=== PATIENT | male | born 1970 | race Hispanic/Latino ===

== ENCOUNTER 2023-12-04 15:37 | Inpatient (IN) | payer BC ==
[~2023-12-04 15:37] MED LIST: Iopamidol 370 76% 100 ML VIAL ONE; Iopamidol-370 76% 500 ML MDV (1 ML CHARGE) ONE
[2023-12-04] MEDS ORDERED: fentaNYL 50 mcg/mL 1 mL Vial ONE ×3 (16:15→21:00)
[2023-12-04] MEDS ORDERED: Aspirin Chewable 81 MG TAB ONE (16:16)
[2023-12-04 16:21] LABS: Hematocrit 48.1 % (42.0-52.0); Hemoglobin 16.8 g/dL (14.0-18.0); Manual Diff?? YES; Mean Corpuscular HGB CONC 34.9 g/dL (32.0-36.0); Mean Corpuscular Hemoglobin 32.1 pg (27.0-31.0); Mean Corpuscular Volume 91.8 fl (78.0-98.0); Mean Platelet Volume 9.9 fL (7.4-10.4); Platelet Count 251 10x3/uL (130-400); RBC Distribution Width 13.5 % (11.5-14.5); Red Blood Cell (RBC) Count 5.24 mill/uL (4.70-6.10); White Blood Cell (WBC) Count 12.5 10x3/uL (4.8-10.8)
[2023-12-04 16:23] LABS: Delete Auto Diff?? YES
[2023-12-04 16:43] LABS: CellaVision Operator ID LAB.KB; Eosinophils 1 % (0-10); Hypersegmented Neutrophil SLIGHT (None Seen); Lymphocytes 23 % (21-51); Monocytes 7 % (0-10); Neutrophil 56 % (42-75); Platelet Adequacy Comment Platelets Normal; Polychromasia SLIGHT = 2-3 cells HPF (0-2); Reactive Lymphocytes 10 % (0-10); Smudge Cells 18.2 %; Total Cell Count 99
[2023-12-04 16:45] LABS: ALT (SGPT) 32 U/L (8-55); AST (SGOT) 19 U/L (5-34); Albumin 4.6 g/dL (3.5-5.0); Alkaline Phosphatase 89 U/L (40-110); Anion Gap 14 mmol/L (10-20); BUN (Urea Nitrogen) 9 mg/dL (8.4-25.7); Bilirubin, Total 0.9 mg/dL (0.2-1.2); Calc. Creatinine Clearance 0 mL/min (70-130); Calcium 9.4 mg/dL (7.8-10.44); Carbon Dioxide 24 mmol/L (22-29); Chloride 102 mmol/L (98-107); Estimated GFR 92; Globulin 2.9 g/dL (2.4-3.5); Glucose 213 mg/dL (70-105); Lipase 13 U/L (8-78); Potassium 3.9 mmol/L (3.5-5.1); Protein, Total 7.5 g/dL (6.0-8.3); Sodium 136 mmol/L (136-145)
[2023-12-04 16:47] LABS: Troponin I Less than 0.010 ng/mL (< 0.028)
[2023-12-04] MEDS ORDERED: Nitroglycerin 0.4mg/Hour PATCH ONE (17:13)
[2023-12-04] MEDS ORDERED: Nitroglycerin 0.4 MG TAB (25 Tab Bottle) ONE (17:14)
[2023-12-04] MEDS ORDERED: Morphine 4 MG/ML VIAL ONE (20:09)
[2023-12-04] MEDS ORDERED: Lidocaine 1% (PF) 30 ML VIAL ONE (20:34)
[2023-12-04] MEDS ORDERED: Nitroglycerin 50 MG/250 ML BOT 250 ML ONE (20:34)
[2023-12-04] MEDS ORDERED: Heparin 10,000 UNITS/ 10 ML VIAL ONE (20:34)
[2023-12-04] MEDS ORDERED: Heparin 25,000 UNITS/D5W 500 ml bag ONE (20:38)
[2023-12-04 20:45] LABS: PTT 28.4 sec (22.9-36.1); Prothrombin Time 13.5 sec (12.0-14.7)
[2023-12-04] MEDS ORDERED: Midazolam HCl 2 mg/2 ml Vial ONE (21:00)
[2023-12-04] MEDS ORDERED: TICAGRELOR 90 MG TABLET ONE (21:24)
[2023-12-04] MEDS ORDERED: Morphine 2 MG/ML VIAL SLOW IVP PRN (22:00)
[2023-12-04] MEDS ORDERED: Milk Of Magnesia 30 ML UDCUP PO PRN (22:00)
[2023-12-04] MEDS ORDERED: Mag-Al 1200 mg/1200 mg/30 ML UDCUP PO PRN (22:00)
[2023-12-04] MEDS ORDERED: Zolpidem Tartrate 5 MG TAB PO PRN (22:00)
[2023-12-04] MEDS ORDERED: traMADol HCl 50 MG TAB PO PRN (22:00)
[2023-12-04] MEDS ORDERED: Acetaminophen/Codeine 30-300mg Tablet PO PRN (22:00)
[2023-12-04] MEDS ORDERED: Sodium Chloride 0.9% 500 ML IV SCH (22:15)
[2023-12-04] MEDS ORDERED: Dextrose 5% in Water 1,000 ML IV PRN (22:25)
[2023-12-04] MEDS ORDERED: HumaLOG 300 UNITS/3 ML VIAL SC PRN (22:25)
[2023-12-04] MEDS ORDERED: Dextrose 50% Abboject 50 ML SYRINGE SLOW IVP PRN (22:25)
[2023-12-04] MEDS ORDERED: Glucagon 1 MG/ML KIT IM PRN (22:25)
[2023-12-04 23:54] VITALS: BMI 28.1
[2023-12-05 04:19] LABS: #Monocytes 0.8 thou/uL (0.11-0.59); #Neutrophils 9.6 thou/uL (1.40-6.50); %Basophils 0.2 % (0.0-1.0); %Eosinophils 0.2 % (0.0-10.0); %Lymphocytes 19.3 % (21.0-51.0); %Monocytes 6.1 % (0.0-10.0); %Neutrophils 73.9 % (42.0-75.0); Hematocrit 43.1 % (42.0-52.0); Hemoglobin 15.3 g/dL (14.0-18.0); Mean Corpuscular HGB CONC 35.5 g/dL (32.0-36.0); Mean Corpuscular Hemoglobin 32.6 pg (27.0-31.0); Mean Corpuscular Volume 91.7 fl (78.0-98.0); Platelet Count 201 10x3/uL (130-400); RBC Distribution Width 13.7 % (11.5-14.5)
[2023-12-05 04:29] LABS: Hemoglobin A1c 8.2 % (4.0-6.0)
[2023-12-05 04:41] LABS: ALT (SGPT) 45 U/L (8-55); AST (SGOT) 137 U/L (5-34); Albumin 3.8 g/dL (3.5-5.0); Alkaline Phosphatase 76 U/L (40-110); Anion Gap 12 mmol/L (10-20); BUN (Urea Nitrogen) 7 mg/dL (8.4-25.7); Bilirubin, Total 0.8 mg/dL (0.2-1.2); Calc. Creatinine Clearance 149 mL/min (70-130); Calcium 8.6 mg/dL (7.8-10.44); Carbon Dioxide 21 mmol/L (22-29); Cardiac Risk 6.7 (Less than 4.5); Chloride 104 mmol/L (98-107); Cholesterol 195 mg/dl (< 200 Desired); Estimated GFR 109; Globulin 2.9 g/dL (2.4-3.5); Glucose 167 mg/dL (70-105); HDL Cholesterol 29 mg/dL (>60 Neg Risk); LDL Cholesterol, Calculated 146 mg/dL; Potassium 3.8 mmol/L (3.5-5.1); Protein, Total 6.7 g/dL (6.0-8.3); Sodium 133 mmol/L (136-145); Triglycerides 100 mg/dL (Less than 150)
[2023-12-05 04:44] LABS: Critical Call Chem Troponin I NUR.DLH2 @0442; Troponin I 32.551 ng/mL (< 0.028)
[2023-12-05 04:55] LABS: Free T4 (Free Thyroxine) 1.31 ng/dL (0.70-1.48); Thyroid Stimulating Hormone 0.2884 uIU/mL (0.35-4.94)
[2023-12-05] MEDS: TICAGRELOR 90 MG TABLET PO SCH ×2 (09:15→21:06)
[2023-12-05] MEDS: Famotidine 20 MG TAB PO SCH ×2 (09:15→21:05)
[2023-12-05] MEDS: Aspirin Chewable 81 MG TAB PO SCH (09:15)
[2023-12-05] MEDS ORDERED: Rosuvastatin 20 MG TAB PO SCH (21:00)
[2023-12-05] MEDS: Sacubitril 24MG/Valsartan 26 MG TAB PO SCH (21:05)
[2023-12-06] MEDS ORDERED: Empagliflozin 10 MG TAB PO SCH (09:00)
[2023-12-06] MEDS: TICAGRELOR 90 MG TABLET PO SCH (09:41)
[2023-12-06] MEDS: Aspirin Chewable 81 MG TAB PO SCH (09:41)
[2023-12-06] MEDS: Sacubitril 24MG/Valsartan 26 MG TAB PO SCH (09:41)
[2023-12-06] MEDS: Famotidine 20 MG TAB PO SCH (09:41)
[2023-12-06 15:54] VITALS: BP 115/71; TEMP 98.6
[2023-12-08] MEDS ORDERED: FLU VACC QS2023-24(6MOS UP)/PF 60 MCG/0.5 ML SYRINGE IM ONE (09:00)
== END 2023-12-06 17:25 | disposition home or self-care (01) | DRG 322 ==
LOC: ERS 15:37 → CCL 21:27 → CCU 22:22 → 2NO 12-05 21:53
PROVIDERS: ADMIT Internal Medicine Cardiovascular Disease; ATTEND Internal Medicine Cardiovascular Disease
PROC: 027036Z Dilation of Coronary Artery, One Artery with Three Drug-eluting Intraluminal Devices, Percutaneous Approach (ICD-10-PCS; principal; 2023-12-04)
PROC: 4A023N7 Measurement of Cardiac Sampling and Pressure, Left Heart, Percutaneous Approach (ICD-10-PCS; 2023-12-04)
PROC: B2151ZZ Fluoroscopy of Left Heart using Low Osmolar Contrast (ICD-10-PCS; 2023-12-04)
PROC: B2111ZZ Fluoroscopy of Multiple Coronary Arteries using Low Osmolar Contrast (ICD-10-PCS; 2023-12-04)
DX: I21.09 ST elevation (STEMI) myocardial infarction involving other coronary artery of anterior wall (principal); Z95.1 Presence of aortocoronary bypass graft; I25.2 Old myocardial infarction; F17.210 Nicotine dependence, cigarettes, uncomplicated; Z79.82 Long term (current) use of aspirin; I25.10 Atherosclerotic heart disease of native coronary artery without angina pectoris; Z95.5 Presence of coronary angioplasty implant and graft; E11.65 Type 2 diabetes mellitus with hyperglycemia; Z79.4 Long term (current) use of insulin; Z79.899 Other long term (current) drug therapy; I25.5 Ischemic cardiomyopathy
CPT/HCPCS: 36415; 36416; 71045; 71275; 74174; 80053; 80061; 83036; 83690; 83880; 84439; 84443; 84481; 84484; 85025; 85347; 85610; 85730; 92941; 93005; 93010; 93306; 93454; 93798; 96374; 96375; 96376; 99152; 99153; C1769; C1874; C1887; C9606; J1644; J1815; J2001; J2250; J2270; J3010; J7030; Q9967